=== PATIENT | female | born 1995 | race Hispanic/Latino ===

== ENCOUNTER 2016-08-14 09:23 | Emergency (ER) | payer OTHER ==
[~2016-08-14] VITALS: Ht 175.3 cm; Wt 72.6 kg
[~2016-08-14 09:23] MED LIST: BACTRIM DS TAB1 EACH PO; CARAFATE1 GM/10 M1 PO; DOXYCYCLINE MO100 MG PO; HYDROXYZINE50 MG PO; MICROGESTIN FE1 TAB PO; NEXIUM 40MG40 MG PO; PEPCID40 MG PO; PYRIDIUM200 M1 PO; SERTRALINE HCL50 MG PO; ZOFRAN 4 MG TABL4 MG PO
[2016-08-14 09:27] VITALS: BP 123/73
--- NOTE | 2016-08-14 09:46 | ED GI/GU/ABDOMINAL COMPLAINT ---
History of Present Illness General Chief Complaint: Abdominal Pain/Flank Pain Stated Complaint: PT STATES"I HAVE BAD STOMACH ACID PAIN" Source: patient, old records Exam Limitations: no limitations Vital Signs & Intake/Output Vital Signs & Intake/Output Vital Signs Date Time Temp Pulse Resp B/P Pulse O2 O2 Flow FiO2 Ox Delivery Rate 08/14 0927 97.2 71 16 123/73 96 Room Air Allergies Coded Allergies: NO KNOWN ALLERGIES (02/17/16) Reconcile Medications Esomeprazole (Nexium) 40 MG CAP 1 CAP PO DAILY GI (Reported) Esomeprazole Magnesium (Nexium) 20 MG CAPSULE.DR 1 CAP PO DAILY gerd Ethinyl Estradiol/Norethindr2 (Microgestin Fe 1.5/30 30 Mcg-75 MG-1.5 MG) 1 TAB TAB 1 TAB PO DAILY BC (Reported) [Magic Mouthwash] 5-10 ML PO Q6P PRN abdominal pain maalox, viscous lidocaine, benadryl 1:1:1 Metoclopramide HCl (Reglan) 10 MG TABLET 1 TAB PO 4 TIMES/DAY PRN gerd 30 minutes before meals and bedtime Sertraline HCl 50 MG TABLET 1 TAB PO DAILY MENTAL HEALTH (Reported) Sucralfate (Carafate) 1 GM/10 ML ORAL.SUSP 10 ML PO 4 TIMES/DAY epigastric pain 1 hour before food and bedtime Triage Note: PT STATES SHE HAS MAD ACID REFLUX AND SHE CAN'T GET IT TO GO AWAY. PT DID NOT TAKE ANYTHING FOR IT TODAY STATES SHE THOUGHT IT WOULD PASS. PT STATES USUALY WHEN I COME HERE THEY "GIVE ME THAT WHITE STUFF AND IT GOES AWAY". Triage Nurses Notes Reviewed? yes LMP (ages 10-50): unknown ? n Is pt currently ? No Onset: Just prior to arrival Duration: hour(s):, constant, continues in ED Timing: recent history Quality/Severity: burning, moderate Location: epigastric Radiation: no radiation Activities at Onset: none Prior Abdominal Problems: similar symptoms Past Sexual History: Unobtainable at this time No Modifying Factors: none Associated Symptoms: abdominal pain, nausea/vomiting HPI: After eating breakfast patient complains of burning epigastric pain similar to her reflux moderate to severe nonradiating associated with nausea. She has fever chills vomiting diarrhea chest pain cough shortness of breath headache dysuria rash bleeding . Past History Travel History Traveled to [place] past 21 day No Medical History Any Pertinent Medical History? 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 No Review of Systems Review of Systems Constitutional: Reports: no symptoms. EENTM: Reports: no symptoms. Respiratory: Reports: no symptoms. Cardiovascular: Reports: no symptoms. GI: Reports: see HPI, abdominal pain, nausea. Genitourinary: Reports: no symptoms. Musculoskeletal: Reports: no symptoms. Skin: Reports: no symptoms. Neurological/Psychological: Reports: no symptoms. Hematologic/Endocrine: Reports: no symptoms. Immunologic/Allergic: Reports: no symptoms. All Other Systems: Reviewed and Negative Physical Exam Physical Exam General Appearance: well developed/nourished, alert, awake, anxious, mild distress Head: atraumatic, normal appearance Eyes: Bilateral: normal appearance, PERRL, EOMI, normal inspection. Ears, Nose, Throat, Mouth: hearing grossly normal, moist mucous membrane Neck: normal inspection, supple, full range of motion, normal alignment Respiratory: normal breath sounds, chest non-tender, no respiratory distress, quiet respiration, lungs clear Cardiovascular: regular rate/rhythm, normal peripheral pulses, norml femoral pulses equa Peripheral Pulses: 4+ carotid (R), 4+ carotid (L) Gastrointestinal: normal bowel sounds, soft, non-tender, no organomegaly Back: normal inspection, normal range of motion Extremities: normal range of motion, no ligament instability Neurologic/Psych: no motor/sensory deficits, awake, alert, oriented x 3, normal gait, normal mood/affect, company marker II-XII nml as tested Skin: intact, normal color, warm/dry Core Measures ACS in differential dx? No Severe Sepsis Present: No Septic Shock Present: No Progress Differential Diagnosis: gastritis Plan of Care: Current Medications Sig/Mary Start time Last Medication Dose Stop Time Status Admin Metoclopramide HCl 10 MG ONCE ONE 08/14 0845 UNVr (Reglan) 08/14 0846 Initial ED EKG: none Comments: Improved after interventions Departure Departure Time of Disposition: 101 Disposition: HOME OR SELF CARE Condition: Stable Clinical Impression Primary Impression: Gastroesophageal reflux disease Qualifiers: Esophagitis presence: with esophagitis Qualified Code: K21.0 - Gastro-esophageal reflux disease with esophagitis Referrals: TARIQ PEDRO MD (PCP/Family) Departure Forms: Customer Survey General Discharge Information Prescriptions: Current Visit Scripts Esomeprazole Magnesium (Nexium) 1 CAP PO DAILY #30 CAP Metoclopramide HCl (Reglan) 1 TAB PO 4 TIMES/DAY PRN gerd #30 TAB 30 minutes before meals and bedtime [Magic Mouthwash] 5-10 ML PO Q6P PRN abdominal pain #270 ML maalox, viscous lidocaine, benadryl 1:1:1
[2016-08-14] MEDS ORDERED: NEXIUM20 M1 PO (10:17)
[2016-08-14] MEDS ORDERED: Magic Mouthwash PO (10:17)
[2016-08-14] MEDS ORDERED: REGLAN10 M1 PO (10:17)
== END 2016-08-14 10:28 ==
LOC: ERH 09:23
DX: K21.9 Gastro-esophageal reflux disease without esophagitis (principal)

== ENCOUNTER 2016-10-15 19:01 | Emergency (ER) | payer OTHER ==
[~2016-10-15] VITALS: Ht 175.3 cm; Wt 74.8 kg
[~2016-10-15 19:01] MED LIST changes: +Magic Mouthwash PO; +NEXIUM20 M1 PO; +REGLAN10 M1 PO
--- NOTE | 2016-10-15 19:18 | ED GI/GU/ABDOMINAL COMPLAINT ---
See Addendum History of Present Illness General Chief Complaint: Abdominal Pain/Flank Pain Stated Complaint: UPPER ABD PAIN Source: patient Exam Limitations: no limitations Vital Signs & Intake/Output Vital Signs & Intake/Output Vital Signs Date Time Temp Pulse Resp B/P Pulse O2 O2 Flow FiO2 Ox Delivery Rate 10/15 2156 72 16 107/71 100 Room Air 10/15 1908 97.3 66 16 105/51 99 Room Air Allergies Coded Allergies: NO KNOWN ALLERGIES (02/17/16) Reconcile Medications Esomeprazole Magnesium (Nexium) 20 MG CAPSULE.DR 1 CAP PO DAILY gerd Norethindrone-E.estradiol-Iron (Microgestin Fe 1-20 Tablet) 1 MG-20 MCG (21)/75 MG (7) TABLET 1 TAB PO DAILY CONTROL (Reported) Ondansetron (Zofran Odt) 4 MG TAB.RAPDIS 1 TAB SL TID nausea Oxycodone HCl 5 MG CAPSULE 1 CAP PO 4XDP Abdominal pain Sertraline HCl 50 MG TABLET 1 TAB PO DAILY MENTAL HEALTH (Reported) Triage Note: PT STATES THAT SHE HAS A HISTORY OF GERD AND THAT SINCE THIS AM SHE HAS BEEN HAVING MID EPIGASTRIC PAIN, AND NAUSEA. Triage Nurses Notes Reviewed? yes ? n Is pt currently ? No HPI: 20 yo F PMH GERD presenting with abdominal pain, nausea. Epigasrtic abdominal pain starting this morning, intermittent with fluctuating intensity, worse after eating breakfast, burning quality. Consistent with the previous gastric reflux symptoms, patient was taking Nexium daily, stopped 1 month ago. Associated nausea, without emesis. Denies fevers, chills, chest pain, shortness of breath, diarrhea, constipation, bloody stools or melena, urinary symptoms, or vaginal symptoms. Sexually active with 1 partner, uses condoms, does not think she is . Occasional social EtOH, none recently. (KATHERIN GARCIA,JUSTIN) Past History Travel History Traveled to [place] past 21 day No Medical History Any Pertinent Medical History? 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 No (JUSTIN PANDEY MD) Review of Systems Review of Systems Constitutional: Reports: no symptoms. EENTM: Reports: no symptoms. Respiratory: Reports: no symptoms. Cardiovascular: Reports: no symptoms. GI: Reports: abdominal pain, nausea. Denies: diarrhea, distention, bowel incontinence. Genitourinary: Reports: no symptoms. Musculoskeletal: Reports: no symptoms. Skin: Reports: no symptoms. Neurological/Psychological: Reports: no symptoms. Hematologic/Endocrine: Reports: no symptoms. Immunologic/Allergic: Reports: no symptoms. All Other Systems: Reviewed and Negative (KATHERIN GARCIA,JUSTIN) Physical Exam Physical Exam General Appearance: well developed/nourished, no apparent distress, alert, awake Head: atraumatic, normal appearance Eyes: Bilateral: normal appearance. Ears, Nose, Throat, Mouth: moist mucous membrane Neck: normal inspection, supple, full range of motion Respiratory: normal breath sounds, no respiratory distress, lungs clear Cardiovascular: regular rate/rhythm, normal peripheral pulses Gastrointestinal: soft Comments: Abdomen: Mild epigastric and right upper quadrant tenderness to palpation, negative Willis sign, no rebound or guarding Core Measures ACS in differential dx? No Severe Sepsis Present: No Septic Shock Present: No (KATHERIN GARCIA,JUSTIN) Progress Differential Diagnosis: appendicitis, bowel obstruction, cholecystitis, diverticulitis, hernia, inflamm bowel dis, intrauterine , kidney stone, peptic ulcer, PUD/GERD Plan of Care: Orders Procedure Date/time Status URINE 10/15 1926 Complete LIPASE 10/15 1926 Complete COMPREHENSIVE METABOLIC PANEL 10/15 1926 Complete CBC WITHOUT DIFFERENTIAL 10/15 1926 Complete Laboratory Tests 10/15/164: Urine Test NEGATIVE 10/15/161941: Anion Gap 13, Estimated GFR > 60, BUN/Creatinine Ratio 11.4, Glucose 132 H, Calcium 9.4, Total Bilirubin 0.7, AST 60 H, ALT 48, Alkaline Phosphatase 74, Total Protein 7.8, Albumin 4.3, Globulin 3.5, Albumin/Globulin Ratio 1.2, Lipase 69, CBC w Diff NO MAN DIFF REQ, RBC 4.25, MCV 88.7, MCH 29.7, RDW 14.4, MPV 8.1, Gran % 77.7 H, Lymphocytes % 17.0 L, Monocytes % 4.7, Eosinophils % 0.3, Basophils % 0.3, Absolute Granulocytes 7.4 H, Absolute Lymphocytes 1.6, Absolute Monocytes 0.4, Absolute Eosinophils 0, Absolute Basophils 0, PUBS MCHC 33.5 Physician MDM: 20 yo F PMH GERD presenting with epigastric pain x 1 day. VSS, abdominal exam as above. DDx: GERD, peptic ulcer disease, gastritis, biliary pathology, colitis, less likely , ovarian, or vaginal pathology. CBC unremarkable, no leukocytosis. CMP with mild AST elevation 60, otherwise unremarkable, lipase normal. Bedside ultrasound with moderate amount of small stones in gallbladder, no evidence of gallbladder wall edema or pericholecystic fluid, CBD small compared to adjacent portal vein and hepatic artery, (-) sonographic willis's sign. Maalox, lidocaine, pepcid, zofran given. Signed out, dispo pending U-preg and re-evaluation, likely discharge with outpatient RUQ U/S and close f/u with general surgery tomorrow. D/W Dr. Villegas. (KATHERIN GARCIA,JUSTIN) U PREG NEGATIVE. PATIENT DISCHARGED. (SAIDA GARCIA,ABELINO) Initial ED EKG: none (KATHERIN GARCIA,JUSTIN) Departure Departure Disposition: HOME OR SELF CARE Condition: Stable Clinical Impression Primary Impression: Symptomatic cholelithiasis Referrals: [facility] Additional Instructions: Take tylenol for mild-moderate pain. Ta Follow up with [facility] radiology for Right Upper Quadrant Ulrasound tomorrow. Follow up with [facility] ([phone]) for surgery to remove gallbladder. Return to the ED for any new, worsening, or concerning symptoms. Departure Forms: Customer Survey General Discharge Information Prescriptions: Current Visit Scripts Oxycodone HCl 1 CAP PO 4XDP #8 CAP Ondansetron (Zofran Odt) 1 TAB SL TID #15 TAB (KATHERIN GARCIA,JUSTIN) Departure Time of Disposition: 2227 (ABELINO VILLEGAS MD)
[2016-10-15 19:49] LABS: ABSOLUTE BASOPHIL COUNT 0 /CUMM (0.0-0.2); ABSOLUTE EOSINOPHIL COUNT 0 /CUMM (0.0-0.7); ABSOLUTE GRANULOCYTE CT 7.4 /CUMM (1.4-6.5); ABSOLUTE LYMPH COUNT 1.6 /CUMM (1.2-3.4); ABSOLUTE MONOCYTE COUNT 0.4 /CUMM (0.10-0.60); BASOPHIL % 0.3 % (0.0-2.0); EOSINOPHIL % 0.3 % (0-5); GRANULOCYTE % 77.7 % (42.2-75.2); HEMATOCRIT 37.6 % (37-47); MEAN CORPUSCULAR HGB 29.7 PG (27.0-31.0); MEAN CORPUSCULAR HGB CONC 33.5 G/DL (33.0-37.0); MEAN CORPUSCULAR VOLUME 88.7 FL (81.0-99.0); MEAN PLATELET VOLUME 8.1 FL (7.4-10.4); PLATELET COUNT 258 /CUMM (130-400); RBC DISTRIBUTION WIDTH 14.4 % (11.5-14.5); RED BLOOD CELL CT 4.25 /CUMM (4.20-5.40); WHITE BLOOD CELL COUNT 9.5 /CUMM (4.8-10.8)
[2016-10-15] MEDS ORDERED: MICROGESTIN FE1 EAC1 PO (20:10)
[2016-10-15] MEDS ORDERED: ZOFRAN ODT4 M1 SL (21:32)
[2016-10-15] MEDS ORDERED: OXYCODONE HCL5 M2 PO (21:32)
[2016-10-15 21:56] VITALS: BP 107/71
== END 2016-10-15 22:30 ==
LOC: ERH 19:01
PROVIDERS: Student in an Organized Health Care Education/Training Program
DX: K80.20 Calculus of gallbladder without cholecystitis without obstruction (principal)
CPT/HCPCS: 81025; 96374; 96375; J1885; J2405

== ENCOUNTER 2016-12-04 07:46 | Emergency (ER) | payer OTHER ==
[~2016-12-04 07:46] MED LIST changes: +MICROGESTIN FE1 EAC1 PO; +OXYCODONE HCL5 M2 PO; +ZOFRAN ODT4 M1 SL
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
--- NOTE | 2016-12-04 08:18 | RADIOLOGY REPORT ---
EXAMINATION: XR FINGER, LEFT CLINICAL INFORMATION: Left middle finger with pain and swelling at PIP joint. COMPARISON: None TECHNIQUE: Three views of the left middle finger including PA hand performed. FINDINGS: The bones and soft tissues are normal. No fracture. Alignment is anatomic. Joint spaces are maintained. IMPRESSION: Normal finger radiographs.
[2016-12-04] MEDS ORDERED: IBUPROFEN600 M1 PO (08:21)
[2016-12-04 08:29] VITALS: BP 115/74
== END 2016-12-04 08:30 ==
LOC: ERH 07:46
DX: S63.613A Unspecified sprain of left middle finger, initial encounter (principal); Y09 Assault by unspecified means; Y92.9 Unspecified place or not applicable; Y93.9 Activity, unspecified
CPT/HCPCS: 73140-LT